=== PATIENT | female | born 1975 | race Caucasian/White ===

== ENCOUNTER 2016-11-28 19:37 | Emergency (ER) | payer OTHER ==
[~2016-11-28] VITALS: Ht 167.6 cm; Wt 104.3 kg
[~2016-11-28 19:37] MED LIST: ANAPROX DS550 MG PO; LOPID600 M1 PO; NORCO 7.5-3251 EACH PO; PRILOSEC40 M1 PO; VICODIN 500 MG-1 TAB PO; XANAX XR0.5 MG PO
[2016-11-28] MEDS ORDERED: DOXYCYCLINE100 M3 PO (19:53)
== END 2016-11-28 20:11 | disposition home or self-care (01) ==
LOC: ED 19:37
DX: S40.261A Insect bite (nonvenomous) of right shoulder, initial encounter (principal); L03.113 Cellulitis of right upper limb; W57.XXXA Bitten or stung by nonvenomous insect and other nonvenomous arthropods, initial encounter; Y93.9 Activity, unspecified; Y92.9 Unspecified place or not applicable; Y99.9 Unspecified external cause status

== ENCOUNTER → 2017-07-14 | Outpatient (CLI) | payer OTHER ==
[~2017-07-14] MED LIST changes: +DOXYCYCLINE100 M3 PO
[2017-07-14 15:42] LABS: BASO % 0.3 % (0.0-1.0); EOS # 0.3 10*3/uL (0.0-0.4); EOS % 3.6 % (1.0-4.0); HEMATOCRIT 41.8 % (37.0-47.0); HEMOGLOBIN 13.8 g/dl (12.0-16.0); LYMPH % 34.5 % (27.0-41.0); MEAN CORPUSCULAR HGB 28.4 pg (27.0-31.0); MEAN PLATELET VOLUME 9.9 fl (9.6-12.3); MONO # 0.5 10*3/uL (0.1-1.0); MONO % 6.3 % (3.0-9.0); NEUT # 4.8 10*3/uL (2.3-7.9); NEUT % 55.1 % (47.0-73.0); PLATELET COUNT AUTOMATED 301 10*3/uL (130-400); RED BLOOD COUNT 4.86 10*6/uL (4.10-5.10); RED CELL DISTRI WIDTH 12.9 % (0-14.5); WHITE BLOOD COUNT 8.6 10*3/uL (4.8-10.8)
[2017-07-14 15:45] LABS: BILIRUBIN NEGATIVE (NEGATIVE); BLOOD NEGATIVE (NEGATIVE); CLARITY SL CLOUDY (CLEAR); COLOR YELLOW (YELLOW); GLUCOSE NEGATIVE (NEGATIVE); KETONE NEGATIVE (NEGATIVE); LEUKO ESTERASE NEGATIVE (NEGATIVE); NITRITE NEGATIVE (NEGATIVE); PH 5.5 (5.0-9.0); SPECIFIC GRAVITY 1.025 (1.005-1.030); UROBILINOGEN 0.2 E.U./dl (0.2-1.0)
[2017-07-14 15:51] LABS: MUCOUS 1+; WBC 0-2 wbc/hpf (0-5)
[2017-07-14 15:54] LABS: ALBUMIN 3.7 gm/dl (3.1-4.5); BUN 8 mg/dl (7-24); CHLORIDE 105 mmol/L (98-107); CREATININE 0.72 mg/dL (0.55-1.02); PHOSPHOROUS 2.9 mg/dL (2.5-4.9); POTASSIUM 4.1 mmol/L (3.5-5.1); SODIUM 138 mmol/L (136-145)
== END | disposition home or self-care (01) ==
LOC: LAB 13:53
PROVIDERS: Internal Medicine Nephrology
DX: N28.1 Cyst of kidney, acquired (principal)

== ENCOUNTER 2018-03-29 15:29 | Emergency (ER) | payer OTHER ==
[~2018-03-29] VITALS: Ht 167.6 cm; Wt 83.9 kg
[2018-03-29] MEDS ORDERED: CHLORZOXAZONE500 M2 PO (17:41)
[2018-03-29] MEDS ORDERED: NAPROSYN500 MG PO (17:41)
== END 2018-03-29 17:56 | disposition home or self-care (01) ==
LOC: ED 15:29
DX: S13.9XXA Sprain of joints and ligaments of unspecified parts of neck, initial encounter (principal); R03.0 Elevated blood-pressure reading, without diagnosis of hypertension; R51 Headache; M54.6 Pain in thoracic spine; V49.49XA Driver injured in collision with other motor vehicles in traffic accident, initial encounter; Y93.89 Activity, other specified; Y92.413 State road as the place of occurrence of the external cause; Y99.8 Other external cause status

== ENCOUNTER → 2018-04-14 | Outpatient (CLI) | payer OTHER ==
[~2018-04-14] MED LIST changes: +CHLORZOXAZONE500 M2 PO; +NAPROSYN500 MG PO
== END | disposition home or self-care (01) ==
LOC: MRI 07:54
DX: M47.892 Other spondylosis, cervical region (principal); M51.24 Other intervertebral disc displacement, thoracic region; M48.04 Spinal stenosis, thoracic region; M48.02 Spinal stenosis, cervical region; M50.21 Other cervical disc displacement, high cervical region; M50.30 Other cervical disc degeneration, unspecified cervical region; M51.34 Other intervertebral disc degeneration, thoracic region

== ENCOUNTER → 2018-04-16 | Outpatient (CLI) | payer OTHER | END | disposition home or self-care (01) | LOC: MRI 09:38 | DX: M51.34 Other intervertebral disc degeneration, thoracic region (principal); M50.30 Other cervical disc degeneration, unspecified cervical region; V89.2XXD Person injured in unspecified motor-vehicle accident, traffic, subsequent encounter ==

== ENCOUNTER → 2018-09-02 | Outpatient (CLI) | payer OTHER ==
[2018-09-02 16:40] LABS: BASO # 0.1 10*3/uL (0.0-0.1); BASO % 0.5 % (0.0-1.0); BILIRUBIN NEGATIVE (NEGATIVE); BLOOD NEGATIVE (NEGATIVE); CLARITY SL CLOUDY (CLEAR); COLOR YELLOW (YELLOW); EOS # 0.3 10*3/uL (0.0-0.4); EOS % 2.7 % (1.0-4.0); GLUCOSE NEGATIVE (NEGATIVE); HEMATOCRIT 46.4 % (37.0-47.0); HEMOGLOBIN 15.5 g/dl (12.0-16.0); KETONE TRACE (NEGATIVE); LEUKO ESTERASE NEGATIVE (NEGATIVE); LYMPH # 3.7 10*3/uL (1.3-4.4); LYMPH % 37.9 % (27.0-41.0); MEAN CELL VOLUME 87.7 fl (81.0-99.0); MEAN CORPUSCULAR HGB 29.3 pg (27.0-31.0); MEAN CORPUSCULAR HGB CONC 33.4 g/dl (33.0-37.0); MEAN PLATELET VOLUME 9.3 fl (9.6-12.3); MONO # 0.6 10*3/uL (0.1-1.0); MONO % 6.3 % (3.0-9.0); NEUT % 52.3 % (47.0-73.0); NITRITE NEGATIVE (NEGATIVE); PLATELET COUNT AUTOMATED 264 10*3/uL (130-400); RED BLOOD COUNT 5.29 10*6/uL (4.10-5.10); RED CELL DISTRI WIDTH 12.7 % (0-14.5); RETICULOCYTE % 1.61 % (0.50-2.50); SPECIFIC GRAVITY >= 1.030 (1.005-1.030); UROBILINOGEN 0.2 E.U./dl (0.2-1.0); WHITE BLOOD COUNT 9.7 10*3/uL (4.8-10.8)
[2018-09-02 16:56] LABS: BACTERIA 2+; URIC ACID CRYSTALS 2+
[2018-09-02 17:19] LABS: ALBUMIN 3.9 gm/dl (3.1-4.5); ALKALINE PHOSPHATASE 53 U/L (45-117); BUN 11 mg/dl (7-24); CHLORIDE 104 mmol/L (98-107); CHOLESTEROL 187 mg/dL (<200); CREATININE 0.74 mg/dL (0.55-1.02); GAMMA GLUTAMYL TRANSPEPTIDASE 40 U/L (5-55); HDL CHOLESTEROL 33 mg/dl (40-60); IRON 66 ug/dL (50-170); LDL CHOLESTEROL 91 mg/dL (9-159); POTASSIUM 4.2 mmol/L (3.5-5.1); SGOT/AST 12 IU/L (3-35); SGPT/ALT 26 U/L (12-78); SODIUM 137 mmol/L (136-145); TOTAL IRON BINDING CAPACITY 285 ug/dl (250-450); TOTAL PROTEIN 7.5 gm/dL (6.4-8.2); TRIGLYCERIDES 314 mg/dl (<150); VLDL CHOLESTEROL 63 mg/dL (6-40)
[2018-09-02 17:24] LABS: FERRITIN 103.6 ng/mL (10.0-291.0); VITAMIN D, 25-HYDROXY 16.6 ng/mL (30-100)
[2018-09-02 17:26] LABS: CPK 89 U/L (26-192)
== END | disposition home or self-care (01) ==
LOC: LAB 16:21
PROVIDERS: Family Medicine
DX: E55.9 Vitamin D deficiency, unspecified (principal); R79.89 Other specified abnormal findings of blood chemistry; R53.83 Other fatigue

== ENCOUNTER 2019-05-02 15:34 | Emergency (ER) | payer OTHER ==
[~2019-05-02] VITALS: Ht 167.6 cm; Wt 98.9 kg
== END 2019-05-02 17:12 | disposition home or self-care (01) ==
LOC: ED 15:34
DX: S60.051A Contusion of right little finger without damage to nail, initial encounter (principal); Z79.899 Other long term (current) drug therapy; Z79.2 Long term (current) use of antibiotics; W50.0XXA Accidental hit or strike by another person, initial encounter; Y93.89 Activity, other specified; Y92.238 Other place in hospital as the place of occurrence of the external cause; Y99.0 Civilian activity done for income or pay

== ENCOUNTER → 2020-01-08 | Outpatient (CLI) | payer OTHER ==
[2020-01-08 12:09] LABS: ALBUMIN 3.6 gm/dl (3.1-4.5); ALKALINE PHOSPHATASE 58 U/L (45-117); BUN 11 mg/dl (7-24); CHLORIDE 108 mmol/L (98-107); CREATININE 0.82 mg/dL (0.55-1.02); POTASSIUM 3.8 mmol/L (3.5-5.1); SGOT/AST 15 IU/L (3-35); SGPT/ALT 29 U/L (12-78); SODIUM 139 mmol/L (136-145); TOTAL PROTEIN 7.1 gm/dL (6.4-8.2)
[2020-01-08 12:15] LABS: BASO # 0.1 10*3/uL (0.0-0.1); BASO % 0.5 % (0.0-1.0); EOS # 0.2 10*3/uL (0.0-0.4); EOS % 1.9 % (1.0-4.0); HEMATOCRIT 45.9 % (37.0-47.0); LYMPH # 2.8 10*3/uL (1.3-4.4); LYMPH % 29.8 % (27.0-41.0); MEAN CELL VOLUME 89.6 fl (81.0-99.0); MEAN CORPUSCULAR HGB 29.1 pg (27.0-31.0); MEAN CORPUSCULAR HGB CONC 32.5 g/dl (33.0-37.0); MEAN PLATELET VOLUME 9.5 fl (9.6-12.3); MONO # 0.6 10*3/uL (0.1-1.0); MONO % 6.7 % (3.0-9.0); NEUT # 5.8 10*3/uL (2.3-7.9); NEUT % 60.9 % (47.0-73.0); PLATELET COUNT AUTOMATED 290 10*3/uL (130-400); RED BLOOD COUNT 5.12 10*6/uL (4.10-5.10); RED CELL DISTRI WIDTH 13.2 % (0-14.5); WHITE BLOOD COUNT 9.5 10*3/uL (4.8-10.8)
== END | disposition home or self-care (01) ==
LOC: LAB 10:30
PROVIDERS: Nurse Practitioner Family
DX: L40.9 Psoriasis, unspecified (principal)

== ENCOUNTER → 2020-02-05 | Outpatient (CLI) | payer OTHER | END | disposition home or self-care (01) | LOC: US 12:29 | DX: M79.89 Other specified soft tissue disorders (principal) ==

== ENCOUNTER → 2020-02-18 | Outpatient (CLI) | payer OTHER | END | disposition home or self-care (01) | LOC: MAMMO 01:06 | DX: Z12.31 Encounter for screening mammogram for malignant neoplasm of breast (principal) ==

== ENCOUNTER → 2020-04-07 | Outpatient (CLI) | payer OTHER ==
[~2020-04-07] MED LIST changes: +DIFLUCAN150 MG PO; +NAPROXEN250 MG PO; +SEPTDS PO; +TYLENOL325 M1 PO
[2020-04-11 08:10] LABS: TB1 Ag VALUE 0.11 IU/mL (.)
== END | disposition home or self-care (01) ==
LOC: LAB 11:28
PROVIDERS: ATTEND Dermatology
DX: L40.9 Psoriasis, unspecified (principal)

== ENCOUNTER → 2020-08-13 | Outpatient (CLI) | payer OTHER ==
[2020-08-13 09:42] LABS: BASO % 0.3 % (0.0-1.0); EOS # 0.1 10*3/uL (0.0-0.4); EOS % 1.5 % (1.0-4.0); HEMATOCRIT 45.3 % (37.0-47.0); LYMPH # 2.5 10*3/uL (1.3-4.4); LYMPH % 27.9 % (27.0-41.0); MEAN CELL VOLUME 85.6 fl (81.0-99.0); MEAN CORPUSCULAR HGB 28.7 pg (27.0-31.0); MEAN CORPUSCULAR HGB CONC 33.6 g/dl (33.0-37.0); MEAN PLATELET VOLUME 9.6 fl (9.6-12.3); MONO # 0.5 10*3/uL (0.1-1.0); NEUT # 5.7 10*3/uL (2.3-7.9); NEUT % 64.1 % (47.0-73.0); PLATELET COUNT AUTOMATED 311 10*3/uL (130-400); RED BLOOD COUNT 5.29 10*6/uL (4.10-5.10); RED CELL DISTRI WIDTH 12.5 % (0-14.5); WHITE BLOOD COUNT 8.9 10*3/uL (4.8-10.8)
[2020-08-13 10:00] LABS: ALBUMIN 3.7 gm/dl (3.1-4.5); ALKALINE PHOSPHATASE 53 U/L (45-117); BUN 11 mg/dl (7-24); CHLORIDE 111 mmol/L (98-107); CREATININE 0.72 mg/dL (0.55-1.02); POTASSIUM 4.2 mmol/L (3.5-5.1); SGOT/AST 12 IU/L (3-35); SGPT/ALT 26 U/L (12-78); SODIUM 137 mmol/L (136-145); TOTAL PROTEIN 7.5 gm/dL (6.4-8.2)
== END | disposition home or self-care (01) ==
LOC: LAB 00:06
PROVIDERS: ATTEND Nurse Practitioner Family
DX: R19.7 Diarrhea, unspecified (principal)

== ENCOUNTER → 2020-08-15 | Outpatient (CLI) | payer OTHER | END | disposition home or self-care (01) | LOC: LAB 08:03 | PROVIDERS: ATTEND Nurse Practitioner Family | DX: R19.7 Diarrhea, unspecified (principal) ==

== ENCOUNTER → 2021-03-20 | Outpatient (CLI) | payer OTHER | END | disposition home or self-care (01) | LOC: MAMMO 09:57 | PROVIDERS: ATTEND Nurse Practitioner Women's Health | DX: Z12.31 Encounter for screening mammogram for malignant neoplasm of breast (principal); R10.2 Pelvic and perineal pain ==

== ENCOUNTER → 2021-08-08 | Outpatient (CLI) | payer OTHER | END | disposition home or self-care (01) | LOC: RAD 05:26 | PROVIDERS: ATTEND Internal Medicine | DX: R22.32 Localized swelling, mass and lump, left upper limb (principal) ==

== ENCOUNTER → 2022-02-21 | Outpatient (CLI) | payer OTHER ==
[~2022-02-21] MED LIST changes: +CIPRO500 MG PO
[2022-02-21 22:54] LABS: BILIRUBIN Negative (Negative); BLOOD Negative (Negative); CLARITY Clear (Clear); COLOR Yellow (Yellow); GLUCOSE Negative (Negative); KETONE Negative (Negative); LEUKO ESTERASE Negative (Negative); NITRITE Negative (Negative)
[2022-02-21 23:12] LABS: BACTERIA 1+; WBC 0-2 wbc/hpf (0-5)
== END | disposition home or self-care (01) ==
LOC: LAB 22:07
PROVIDERS: ATTEND Physician Assistant
DX: R30.0 Dysuria (principal)

== ENCOUNTER 2022-04-07 20:03 | Emergency (ER) | payer OTHER ==
[2022-04-07 20:55] LABS: BASO # 0.1 10*3/uL (0.0-0.1); BASO % 0.5 % (0.0-1.0); EOS # 0.3 10*3/uL (0.0-0.4); EOS % 2.6 % (1.0-4.0); HEMATOCRIT 46.5 % (37.0-47.0); LYMPH # 2.9 10*3/uL (1.3-4.4); MEAN CELL VOLUME 86.9 fl (81.0-99.0); MEAN CORPUSCULAR HGB 28.8 pg (27.0-31.0); MEAN CORPUSCULAR HGB CONC 33.1 g/dl (33.0-37.0); MEAN PLATELET VOLUME 9.1 fl (9.6-12.3); MONO # 0.6 10*3/uL (0.1-1.0); MONO % 5.7 % (3.0-9.0); NEUT # 6.6 10*3/uL (2.3-7.9); NEUT % 63.1 % (47.0-73.0); PLATELET COUNT AUTOMATED 250 10*3/uL (130-400); RED BLOOD COUNT 5.35 10*6/uL (4.10-5.10); RED CELL DISTRI WIDTH 12.7 % (0-14.5); WHITE BLOOD COUNT 10.4 10*3/uL (4.8-10.8)
[2022-04-07 21:13] LABS: ACT PARTIAL THROMBO TIME 23.1 SECONDS (20.0-32.1); INTERNATIONAL NORM RATIO 0.9 (2.0-3.5)
[2022-04-07 21:19] LABS: ALKALINE PHOSPHATASE 61 U/L (45-117); BUN 14 mg/dl (7-24); CHLORIDE 109 mmol/L (98-107); CREATININE 0.72 mg/dL (0.55-1.02); LIPASE 85 U/L (73-393); POTASSIUM 3.7 mmol/L (3.5-5.1); SGOT/AST 15 IU/L (3-35); SGPT/ALT 34 U/L (12-78); SODIUM 137 mmol/L (136-145); TOTAL PROTEIN 7.2 gm/dL (6.4-8.2)
[2022-04-07] MEDS ORDERED: PREDNISONE20 M1 PO (22:17)
== END 2022-04-07 23:00 | disposition home or self-care (01) ==
LOC: ED 20:03
PROVIDERS: Family Medicine
DX: R05.9 Cough, unspecified (principal); Z20.822 Contact with and (suspected) exposure to COVID-19; R06.2 Wheezing; Z90.710 Acquired absence of both cervix and uterus; Z90.49 Acquired absence of other specified parts of digestive tract; Z98.890 Other specified postprocedural states; Z87.891 Personal history of nicotine dependence

== ENCOUNTER 2022-05-06 16:25 | Emergency (ER) | payer OTHER ==
[~2022-05-06] VITALS: Ht 167.6 cm; Wt 81.6 kg
[~2022-05-06 16:25] MED LIST changes: +PREDNISONE20 M1 PO
[2022-05-06 17:26] LABS: BILIRUBIN Negative (Negative); BLOOD Negative (Negative); CLARITY Clear (Clear); COLOR Yellow (Yellow); GLUCOSE Negative (Negative); KETONE Negative (Negative); LEUKO ESTERASE Negative (Negative); NITRITE Negative (Negative)
[2022-05-06 17:45] LABS: BACTERIA 2+; EPITHELIAL CELLS 31-40; WBC 0-2 wbc/hpf (0-5)
[2022-05-06 17:58] LABS: BASO % 0.4 % (0.0-1.0); EOS # 0.2 10*3/uL (0.0-0.4); EOS % 2.3 % (1.0-4.0); HEMATOCRIT 45.8 % (37.0-47.0); LYMPH # 3.6 10*3/uL (1.3-4.4); LYMPH % 35.6 % (27.0-41.0); MEAN CELL VOLUME 86.1 fl (81.0-99.0); MEAN CORPUSCULAR HGB 29.3 pg (27.0-31.0); MEAN CORPUSCULAR HGB CONC 34.1 g/dl (33.0-37.0); MEAN PLATELET VOLUME 8.9 fl (9.6-12.3); MONO # 0.6 10*3/uL (0.1-1.0); MONO % 5.8 % (3.0-9.0); NEUT # 5.7 10*3/uL (2.3-7.9); NEUT % 55.7 % (47.0-73.0); PLATELET COUNT AUTOMATED 304 10*3/uL (130-400); RED BLOOD COUNT 5.32 10*6/uL (4.10-5.10); RED CELL DISTRI WIDTH 12.8 % (0-14.5); WHITE BLOOD COUNT 10.2 10*3/uL (4.8-10.8)
[2022-05-06 18:09] LABS: INTERNATIONAL NORM RATIO 0.9 (2.0-3.5)
[2022-05-06 18:26] LABS: ALKALINE PHOSPHATASE 56 U/L (45-117); BUN 12 mg/dl (7-24); CHLORIDE 108 mmol/L (98-107); CREATININE 0.82 mg/dL (0.55-1.02); POTASSIUM 4.3 mmol/L (3.5-5.1); SGOT/AST 17 IU/L (3-35); SODIUM 139 mmol/L (136-145); TOTAL PROTEIN 7.3 gm/dL (6.4-8.2)
[2022-05-06 18:59] LABS: SGPT/ALT 30 U/L (12-78)
== END 2022-05-06 19:24 | disposition home or self-care (01) ==
LOC: ED
PROVIDERS: Physician Assistant
DX: R07.89 Other chest pain (principal); R07.81 Pleurodynia; M25.512 Pain in left shoulder; Z79.899 Other long term (current) drug therapy; Z79.2 Long term (current) use of antibiotics; Z90.49 Acquired absence of other specified parts of digestive tract; Z90.710 Acquired absence of both cervix and uterus; Z87.891 Personal history of nicotine dependence

== ENCOUNTER 2022-07-19 03:02 | Emergency (ER) | payer OTHER ==
[~2022-07-19] VITALS: Ht 167.6 cm; Wt 83.9 kg
[2022-07-19] MEDS ORDERED: CIPROFLOXACIN500 M4 PO (03:10)
[2022-07-19] MEDS ORDERED: PANTOPRAZOLE SO40 MG PO (03:10)
[2022-07-19 03:32] LABS: BILIRUBIN Negative (Negative); BLOOD Negative (Negative); CLARITY Cloudy (Clear); COLOR Yellow (Yellow); GLUCOSE Negative (Negative); KETONE Trace (Negative); LEUKO ESTERASE Negative (Negative); NITRITE Negative (Negative); RBC 16-20 rbc/hpf (0-2); SPECIFIC GRAVITY > 1.030 (1.001-1.030)
[2022-07-19 03:33] LABS: EPITHELIAL CELLS 16-20
[2022-07-19 03:36] LABS: BASO % 0.5 % (0.0-1.0); EOS # 0.1 10*3/uL (0.0-0.4); EOS % 1.4 % (1.0-4.0); HEMATOCRIT 44.2 % (37.0-47.0); LYMPH # 1.2 10*3/uL (1.3-4.4); LYMPH % 20.2 % (27.0-41.0); MEAN CELL VOLUME 85.2 fl (81.0-99.0); MEAN CORPUSCULAR HGB 28.9 pg (27.0-31.0); MEAN CORPUSCULAR HGB CONC 33.9 g/dl (33.0-37.0); MEAN PLATELET VOLUME 8.9 fl (9.6-12.3); MONO # 0.6 10*3/uL (0.1-1.0); MONO % 10.2 % (3.0-9.0); NEUT # 3.9 10*3/uL (2.3-7.9); NEUT % 67.4 % (47.0-73.0); PLATELET COUNT AUTOMATED 210 10*3/uL (130-400); RED BLOOD COUNT 5.19 10*6/uL (4.10-5.10); RED CELL DISTRI WIDTH 12.8 % (0-14.5); WHITE BLOOD COUNT 5.8 10*3/uL (4.8-10.8)
[2022-07-19 03:51] LABS: ALKALINE PHOSPHATASE 52 U/L (46-116); BUN 10 mg/dl (9-23); CHLORIDE 104 mmol/L (98-107); POTASSIUM 3.7 mmol/L (3.4-5.1); SGPT/ALT 30 U/L (10-49)
[2022-07-19] MEDS ORDERED: TAMIFLU 75MG CA75 MG PO (05:08)
== END 2022-07-19 05:04 | disposition home or self-care (01) ==
LOC: ED 03:02
PROVIDERS: Emergency Medicine
DX: J10.1 Influenza due to other identified influenza virus with other respiratory manifestations (principal); E78.5 Hyperlipidemia, unspecified; Z79.899 Other long term (current) drug therapy; Z90.710 Acquired absence of both cervix and uterus; Z90.49 Acquired absence of other specified parts of digestive tract; Z98.890 Other specified postprocedural states; Z87.891 Personal history of nicotine dependence

== ENCOUNTER 2023-04-07 01:17 | Emergency (ER) | payer OTHER ==
[~2023-04-07 01:17] MED LIST changes: +CIPROFLOXACIN500 M4 PO; +PANTOPRAZOLE SO40 MG PO; +TAMIFLU 75MG CA75 MG PO
[2023-04-07] MEDS ORDERED: PREDNISONE20 M1 PO (04:20)
== END 2023-04-07 04:40 | disposition home or self-care (01) ==
LOC: ED 01:17
DX: M51.36 Other intervertebral disc degeneration, lumbar region (principal); E78.5 Hyperlipidemia, unspecified; E78.00 Pure hypercholesterolemia, unspecified; Z90.49 Acquired absence of other specified parts of digestive tract; Z90.710 Acquired absence of both cervix and uterus; Z98.890 Other specified postprocedural states; Z87.891 Personal history of nicotine dependence

== ENCOUNTER → 2023-07-11 | Outpatient (CLI) | payer OTHER | END | disposition home or self-care (01) | LOC: MAMMO 01:17 | PROVIDERS: ATTEND Family Medicine | DX: Z12.31 Encounter for screening mammogram for malignant neoplasm of breast (principal) ==

== ENCOUNTER → 2024-02-25 | Outpatient (CLI) | payer OTHER ==
[2024-02-25 08:01] LABS: URIC ACID 5.4 mg/dL (3.1-7.8)
== END | disposition home or self-care (01) ==
LOC: LAB 00:37
PROVIDERS: ATTEND Student in an Organized Health Care Education/Training Program
DX: M19.90 Unspecified osteoarthritis, unspecified site (principal)

== ENCOUNTER → 2024-04-09 | Outpatient (CLI) | payer OTHER ==
[2024-04-14 03:06] LABS: TB1 Ag VALUE 0.02 IU/mL (.)
== END | disposition home or self-care (01) ==
LOC: LAB 09:51
PROVIDERS: ATTEND Nurse Practitioner
DX: R53.83 Other fatigue (principal)

== ENCOUNTER 2024-09-28 19:59 | Emergency (ER) | payer OTHER ==
[~2024-09-28] VITALS: Ht 167.6 cm; Wt 81.6 kg
[2024-09-28] MEDS ORDERED: SODIUM CHLORIDE 0.9% 1,000 ML IV ONE (20:05)
[2024-09-28] MEDS ORDERED: IOHEXOL 300 MG/ML 100 ML VIAL IV ONE (20:10)
[2024-09-28 20:16] LABS: BASO # 0.1 10*3/uL (0.0-0.1); BASO % 0.5 % (0.0-1.0); EOS # 0.3 10*3/uL (0.0-0.4); EOS % 2.6 % (1.0-4.0); HEMATOCRIT 47.6 % (37.0-47.0); MEAN CORPUSCULAR HGB 29.6 pg (27.0-31.0); MEAN CORPUSCULAR HGB CONC 33.6 g/dl (33.0-37.0); MEAN PLATELET VOLUME 8.8 fl (9.6-12.3); MONO # 0.7 10*3/uL (0.1-1.0); MONO % 7.2 % (3.0-9.0); NEUT # 5.5 10*3/uL (2.3-7.9); NEUT % 56.9 % (47.0-73.0); PLATELET COUNT AUTOMATED 276 10*3/uL (130-400); RED BLOOD COUNT 5.41 10*6/uL (4.10-5.10); RED CELL DISTRI WIDTH 12.8 % (0-14.5); WHITE BLOOD COUNT 9.7 10*3/uL (4.8-10.8)
[2024-09-28 20:27] LABS: ACT PARTIAL THROMBO TIME 27.1 SECONDS (20.0-32.1)
[2024-09-28 20:36] LABS: ALKALINE PHOSPHATASE 55 U/L (46-116); BUN 8 mg/dl (9-23); CHLORIDE 106 mmol/L (98-107); LIPASE 24 U/L (12-53); POTASSIUM 4.1 mmol/L (3.4-5.1); SGPT/ALT 23 U/L (5-49); TOTAL PROTEIN 7.2 gm/dL (6.0-8.0)
== END 2024-09-28 23:45 | disposition home or self-care (01) ==
LOC: ED 19:59
PROVIDERS: Internal Medicine
DX: N83.8 Other noninflammatory disorders of ovary, fallopian tube and broad ligament (principal); R11.2 Nausea with vomiting, unspecified; Z90.49 Acquired absence of other specified parts of digestive tract; Z90.710 Acquired absence of both cervix and uterus; Z87.891 Personal history of nicotine dependence

== ENCOUNTER → 2024-10-21 | Outpatient (CLI) | payer OTHER | END | disposition home or self-care (01) | LOC: US 00:48 | PROVIDERS: ATTEND Nurse Practitioner Women's Health | DX: N83.209 Unspecified ovarian cyst, unspecified side (principal); Z90.710 Acquired absence of both cervix and uterus ==

== ENCOUNTER → 2024-10-29 | Day surgery (SDC) | payer OTHER ==
[~2024-10-29] VITALS: Ht 167.6 cm; Wt 88.9 kg
[~2024-10-29] MED LIST changes: +BUPivacaine 0.5% 30 ML IV ONE; +COLACE100 MG PO; +Dexamethasone Sodium Phospha 4 MG/ML VIAL IV ONE; +HYDROmorphONE Hydrochloride 0.5 MG/0.5 ML SYRINGE IV SCH; +HYDROmorphONE Hydrochloride 0.5 MG/0.5 ML SYRINGE ONE; +Ketamine Hydrochloride 500 MG/10 ML VIAL IV ONE; +Ketorolac Tromethamine 30 MG/ML VIAL IV ONE; +Lactated Ringer's Solution 1,000 ML IV ONE; +Lidocaine Hydrochloride 5 ML VIAL IV ONE; +Midazolam Hydrochloride 2 MG/2 ML VIAL IV ONE; +OMEPRAZOLE MAGN20 MG PO; +OXYCODONE-ACET1 EAC3 PO; +Ondansetron Hydrochloride 4 MG/2 ML VIAL IV ONE; +PERCOCET 5-3251 EACH PO; +PROPOFOL 200 MG/20 ML VIAL IV ONE; +SEVOFLURANE 250 ML BOT INH ONE; +TREMFYA100 MG/11 SQ; +ceFAZolin sodium 2GM/20ML IV ONE; +ceFAZolin sodium/sodium chlor 20 ML IV ONE; +fentaNYL CITRATE 100 MCG/2 ML VIAL IV ONE
[2024-10-29 06:54] VITALS: BP 142/83
[2024-10-29 08:31] VITALS: BP 145/84
[2024-10-29 08:46] VITALS: BP 130/85
[2024-10-29 09:01] VITALS: BP 129/75
[2024-10-29 09:16] VITALS: BP 146/68
[2024-10-29 09:31] VITALS: BP 143/78
== END | disposition home or self-care (01) ==
LOC: SDC 10-27 12:30
PROVIDERS: ATTEND Surgery
DX: K40.90 Unilateral inguinal hernia, without obstruction or gangrene, not specified as recurrent (principal); K21.9 Gastro-esophageal reflux disease without esophagitis; L40.9 Psoriasis, unspecified; Q61.3 Polycystic kidney, unspecified; Z87.891 Personal history of nicotine dependence; Z98.890 Other specified postprocedural states; Z79.899 Other long term (current) drug therapy